=== PATIENT | female | born 1990 | race Caucasian/White ===

== ENCOUNTER 2018-09-14 20:16 | Emergency (ER) | payer OTHER, SELFPAY ==
[2018-09-14 20:23] VITALS: BP 107/51; PULSE 85; RESP 18; TEMP 36.9; O2SAT 98; BMI 29.9
--- NOTE | 2018-09-14 20:56 | ED_ITS ---
HPI - GI Bleed <SWAPNIL Reyna - Last Filed: 09/14/18 22:09> General Chief complaint: GI Bleed Stated complaint: RECTAL BLEEDING, FEVER, CRAMPING Time Seen by Provider: 09/14/18 20:27 Source: patient Mode of arrival: ambulatory Limitations: no limitations History of Present Illness HPI Narrative: Patient is a 27-year-old female with history of GI problems with an endoscope and colonoscopy pending in September. She presents with a chief complaint of bright red blood per rectum without bowel movement at 6:30 p.m.. She endorses nausea, abdominal pain, but no vomiting. She states she only has a bowel movement when she takes Linzess. She has a history of chronic constipation. She states her stools were bright red in jelly-like. She denies any chest pain, complains of low-grade temps, denies shortness of breath. The patient adamantly denies that the blood could be vaginal, though she notes she has had irregular periods since giving 10 months ago. Related Data Home Medications Medication Instructions Recorded Confirmed linaclotide [Linzess] 145 mg PO QDAY #0 07/22/17 09/14/18 1 tab PO QDAY 12/23/17 12/23/17 Allergies Allergy/AdvReac Type Severity Reaction Status Date / Time No Known Allergies Allergy Uncoded 09/14/18 20:28 Review of Systems <SWAPNIL Reyna - Last Filed: 09/14/18 22:09> Review of Systems GENERAL: See HPI HEENT: Denies sinus pain, ear pain, sore throat, difficulty swallowing, dizziness. RESPIRATORY: Denies dyspnea, cough, wheezing, hemoptysis, sputum. CARDIOVASCULAR: Denies chest pain, palpitations, orthopnea, edema, GASTROINTESTINAL: see HPI : Denies dysuria, frequency, incontinence, hematuria, urinary retention. MUSCULOSKELETAL: denies weakness, joint pain, or bony pain SKIN: Denies rash, skin lesions, or other NEUROLOGIC: Denies weakness, headache, numbness, change in speech, confusion, seizures, incoordination. PSYCHIATRIC: No concerning psychosocial issues. 12 point review of systems is negative except for those stated above Exam <SWAPNIL Reyna - Last Filed: 09/14/18 22:09> Narrative Exam Narrative: GENERAL: This is a well-nourished, well-developed patient, in no acute distress HEAD: Atraumatic. Normocephalic. No temporal or scalp tenderness. EYES: Pupils equal round and reactive. Extraocular motions intact. No scleral icterus. No injection or drainage. ENT: Nose without bleeding, purulent drainage or septal hematoma. Throat without erythema, tonsillar hypertrophy or exudate. Uvula midline. Airway patent. NECK: Trachea midline. No JVD or lymphadenopathy. Supple, nontender, no meningeal signs. CARDIOVASCULAR: Regular rate and rhythm without murmurs, gallops, or rubs. RESPIRATORY: Clear to auscultation. Breath sounds equal bilaterally. No wheezes , rales, or rhonchi. GASTROINTESTINAL: Abdomen soft, , nondistended. No hepato-splenomegaly, or palpable masses. No guarding, Soft nonrigid abdomen. diffusely tender bilateral lower quadrants. No pain at McBurney's point. Active bowel sounds. Rectal exam performed with Julia MONTIEL at bedside. No external hemorrhoids visible, no internal hemorrhoids palpable, no fissure noted. EXTREMITIES: No clubbing, cyanosis, or edema. No joint tenderness, effusion, or edema noted. BACK: Nontender without deformity or crepitance. No flank tenderness. NEURO: AOx3. SKIN: No rash or erythema. Initial Vital Signs Initial Vital Signs: Vital Signs Temperature 98.4 F 09/14/18 20:23 Pulse Rate 85 09/14/18 20:23 Respiratory Rate 18 09/14/18 20:23 Blood Pressure 107/51 L 09/14/18 20:23 Pulse Oximetry 98 09/14/18 20:23 <Alma Cleaning DO - Last Filed: 09/14/18 23:10> Initial Vital Signs Initial Vital Signs: Vital Signs Temperature 98.4 F 09/14/18 20:23 Pulse Rate 85 09/14/18 20:23 Respiratory Rate 18 09/14/18 20:23 Blood Pressure 107/51 L 09/14/18 20:23 Pulse Oximetry 98 09/14/18 20:23 Procedures <LUIZ Reyna-BC - Last Filed: 09/14/18 22:09> Stool Hemoccult Procedural Steps Taken: stool placed in appropriate test area, developer placed on stool and control areas and controls appropriately positive and negative Hemoccult result: negative Course <Julia Galloway, MILK DRIVER-BC - Last Filed: 09/14/18 22:09> Course Narrative: I checked on the patient several times throughout her stay in the emergency department. Orders Ordered: ED Orders 09/14/18 21:32 Complete Blood Count AUTO DIFF Stat Comprehensive Metabolic Panel Stat Partial Thromboplastin Time Stat Prothrombin Time INR Stat Type and Screen Stat Discontinued Medications Sodium Chloride (Normal Saline 0.9%) 1,000 mls @ 1,000 mls/hr IV BOLUS ONE Stop: 09/14/18 21:52 Last Infusion: 09/14/18 22:40 Dose: 0 mls/hr Admin: 09/14/18 21:31 Dose: 1,000 mls/hr Ondansetron HCl (Zofran) 4 mg IV NOW ONE Stop: 09/14/18 20:54 Last Admin: 09/14/18 21:32 Dose: 4 mg Ondansetron HCl (Zofran Odt Prepack) 1 bottle MISC SEEINSTR ONE Stop: 09/14/18 22:04 Last Admin: 09/14/18 22:39 Dose: 1 bottle Vital Signs - 8 hr 09/14/18 20:23 09/14/18 22:57 Temperature 98.4 F Pulse Rate 85 71 Respiratory Rate 18 14 Blood Pressure 107/51 L Blood Pressure [Left Wrist] 134/85 Pulse Oximetry 98 97 <Alma Cleaning DO - Last Filed: 09/14/18 23:10> Orders Ordered: ED Orders 09/14/18 21:32 Complete Blood Count AUTO DIFF Stat Comprehensive Metabolic Panel Stat Partial Thromboplastin Time Stat Prothrombin Time INR Stat Type and Screen Stat Discontinued Medications Sodium Chloride (Normal Saline 0.9%) 1,000 mls @ 1,000 mls/hr IV BOLUS ONE Stop: 09/14/18 21:52 Last Infusion: 09/14/18 22:40 Dose: 0 mls/hr Admin: 09/14/18 21:31 Dose: 1,000 mls/hr Ondansetron HCl (Zofran) 4 mg IV NOW ONE Stop: 09/14/18 20:54 Last Admin: 09/14/18 21:32 Dose: 4 mg Ondansetron HCl (Zofran Odt Prepack) 1 bottle MISC SEEINSTR ONE Stop: 09/14/18 22:04 Last Admin: 09/14/18 22:39 Dose: 1 bottle Vital Signs - 8 hr 09/14/18 20:23 09/14/18 22:57 Temperature 98.4 F Pulse Rate 85 71 Respiratory Rate 18 14 Blood Pressure 107/51 L Blood Pressure [Left Wrist] 134/85 Pulse Oximetry 98 97 MDM - GI Bleed <LUIZ Reyna-BC - Last Filed: 09/14/18 22:09> Lab Data Result diagrams: 09/14/18 21:32 09/14/18 21:32 Lab Results 09/14/18 09/14/18 09/14/18 Range/Units 21:32 21:32 21:32 WBC 8.2 (4.5-11.0) X10^3/uL RBC 4.67 (4.0-5.2) X10^6/uL Hgb 12.8 (12.0-16.0) g/dL Hct 38.6 (36-46) % MCV 82.5 (80-100) fL MCH 27.3 (26-34) PG MCHC 33.1 (30-36) % RDW 13.6 (11.6-14.8) % Plt Count 205 (150-400) X10^3/uL Neut % (Auto) 63.3 (50-75) % Lymph % (Auto) 27.3 (25-40) % [place] % (Auto) 7.2 (3-14) % Eos % (Auto) 1.5 L (2-4) % Baso % (Auto) 0.7 (0-2) % Neut # (Auto) 5200 (8971-1757) /uL Lymph # (Auto) 2200 (8282-1668) /uL [place] # (Auto) 600 (0-900) /uL Eos # (Auto) 100 (0-450) /uL Baso # (Auto) 100 (0-100) /uL PT 12.5 (10.1-12.7) SECONDS INR 1.1 (0.9-1.3) APTT 31 (26.4-36.2) SECONDS Sodium 140 (137-145) mmol/L Potassium 4.0 (3.4-5.1) mmol/L Chloride 101 (98-107) mmol/L Carbon Dioxide 27 (22-32) mmol/L BUN 16 (7-17) mg/dL Creatinine 0.70 (0.52-1.04) mg/dL Estimated GFR > 60.0 (>60) mL/min BUN/Creatinine Ratio 22.9 H (6-22) Glucose 83 (70-100) mg/dL Calcium 10.4 H (8.4-10.2) mg/dL Total Bilirubin 0.4 (0.2-1.3) mg/dL AST 28 (14-36) IU/L ALT 22 (9-52) IU/L Alkaline Phosphatase 73 (38-126) U/L Total Protein 8.7 H (6.3-8.2) g/dL Albumin 5.1 H (3.5-5.0) g/dL Globulin 3.6 (1.7-4.1) g/dL Albumin/Globulin Ratio 1.4 (1.0-2.8) Blood Type Antibody Screen 09/14/18 Range/Units 21:32 WBC (4.5-11.0) X10^3/uL RBC (4.0-5.2) X10^6/uL Hgb (12.0-16.0) g/dL Hct (36-46) % MCV (80-100) fL MCH (26-34) PG MCHC (30-36) % RDW (11.6-14.8) % Plt Count (150-400) X10^3/uL Neut % (Auto) (50-75) % Lymph % (Auto) (25-40) % [place] % (Auto) (3-14) % Eos % (Auto) (2-4) % Baso % (Auto) (0-2) % Neut # (Auto) (8004-7301) /uL Lymph # (Auto) (1903-5125) /uL [place] # (Auto) (0-900) /uL Eos # (Auto) (0-450) /uL Baso # (Auto) (0-100) /uL PT (10.1-12.7) SECONDS INR (0.9-1.3) APTT (26.4-36.2) SECONDS Sodium (137-145) mmol/L Potassium (3.4-5.1) mmol/L Chloride (98-107) mmol/L Carbon Dioxide (22-32) mmol/L BUN (7-17) mg/dL Creatinine (0.52-1.04) mg/dL Estimated GFR (>60) mL/min BUN/Creatinine Ratio (6-22) Glucose (70-100) mg/dL Calcium (8.4-10.2) mg/dL Total Bilirubin (0.2-1.3) mg/dL AST (14-36) IU/L ALT (9-52) IU/L Alkaline Phosphatase (38-126) U/L Total Protein (6.3-8.2) g/dL Albumin (3.5-5.0) g/dL Globulin (1.7-4.1) g/dL Albumin/Globulin Ratio (1.0-2.8) Blood Type A Positive Antibody Screen Negative MDM Narrative Medical decision making narrative: Patient is a 27-year-old female who presents with a chief complaint of fever and bloody stool. She is afebrile the emergency department and hemodynamically stable. She is not tachycardic or hypotensive. Her lab work came back grossly normal. Her stool on rectal exam was heme negative. I discussed at length follow up her primary care provider as well as follow up with Gastroenterology as scheduled. She does not have an acute abdomen on exam. I discussed return precautions of severe pain, inability keep down fluids, acute concerns. <Alma Cleaning, DO - Last Filed: 09/14/18 23:10> Lab Data Lab Results 09/14/18 09/14/18 09/14/18 Range/Units 21:32 21:32 21:32 WBC 8.2 (4.5-11.0) X10^3/uL RBC 4.67 (4.0-5.2) X10^6/uL Hgb 12.8 (12.0-16.0) g/dL Hct 38.6 (36-46) % MCV 82.5 (80-100) fL MCH 27.3 (26-34) PG MCHC 33.1 (30-36) % RDW 13.6 (11.6-14.8) % Plt Count 205 (150-400) X10^3/uL Neut % (Auto) 63.3 (50-75) % Lymph % (Auto) 27.3 (25-40) % [place] % (Auto) 7.2 (3-14) % Eos % (Auto) 1.5 L (2-4) % Baso % (Auto) 0.7 (0-2) % Neut # (Auto) 5200 (8797-9466) /uL Lymph # (Auto) 2200 (7753-9903) /uL [place] # (Auto) 600 (0-900) /uL Eos # (Auto) 100 (0-450) /uL Baso # (Auto) 100 (0-100) /uL PT 12.5 (10.1-12.7) SECONDS INR 1.1 (0.9-1.3) APTT 31 (26.4-36.2) SECONDS Sodium 140 (137-145) mmol/L Potassium 4.0 (3.4-5.1) mmol/L Chloride 101 (98-107) mmol/L Carbon Dioxide 27 (22-32) mmol/L BUN 16 (7-17) mg/dL Creatinine 0.70 (0.52-1.04) mg/dL Estimated GFR > 60.0 (>60) mL/min BUN/Creatinine Ratio 22.9 H (6-22) Glucose 83 (70-100) mg/dL Calcium 10.4 H (8.4-10.2) mg/dL Total Bilirubin 0.4 (0.2-1.3) mg/dL AST 28 (14-36) IU/L ALT 22 (9-52) IU/L Alkaline Phosphatase 73 (38-126) U/L Total Protein 8.7 H (6.3-8.2) g/dL Albumin 5.1 H (3.5-5.0) g/dL Globulin 3.6 (1.7-4.1) g/dL Albumin/Globulin Ratio 1.4 (1.0-2.8) Blood Type Antibody Screen 09/14/18 Range/Units 21:32 WBC (4.5-11.0) X10^3/uL RBC (4.0-5.2) X10^6/uL Hgb (12.0-16.0) g/dL Hct (36-46) % MCV (80-100) fL MCH (26-34) PG MCHC (30-36) % RDW (11.6-14.8) % Plt Count (150-400) X10^3/uL Neut % (Auto) (50-75) % Lymph % (Auto) (25-40) % [place] % (Auto) (3-14) % Eos % (Auto) (2-4) % Baso % (Auto) (0-2) % Neut # (Auto) (4501-7930) /uL Lymph # (Auto) (5561-1402) /uL [place] # (Auto) (0-900) /uL Eos # (Auto) (0-450) /uL Baso # (Auto) (0-100) /uL PT (10.1-12.7) SECONDS INR (0.9-1.3) APTT (26.4-36.2) SECONDS Sodium (137-145) mmol/L Potassium (3.4-5.1) mmol/L Chloride (98-107) mmol/L Carbon Dioxide (22-32) mmol/L BUN (7-17) mg/dL Creatinine (0.52-1.04) mg/dL Estimated GFR (>60) mL/min BUN/Creatinine Ratio (6-22) Glucose (70-100) mg/dL Calcium (8.4-10.2) mg/dL Total Bilirubin (0.2-1.3) mg/dL AST (14-36) IU/L ALT (9-52) IU/L Alkaline Phosphatase (38-126) U/L Total Protein (6.3-8.2) g/dL Albumin (3.5-5.0) g/dL Globulin (1.7-4.1) g/dL Albumin/Globulin Ratio (1.0-2.8) Blood Type A Positive Antibody Screen Negative Discharge Plan Departure Patient Disposition: Home Clinical Impression: Abdominal pain, History of rectal bleeding Discharge Date/Time: 09/14/18 23:02 Interventions: ED Discharge Assessment Last Done: 09/14/18 23:01 Instructions: DI for Abdominal Pain-Adult, DI for Rectal Bleeding Activity Restrictions/Additional Instructions: As discussed please follow-up with your primary care provider as well as your mill recorder. You may need to have her colonoscopy sooner than previously arranged. Please push fluids and rest. We are giving you some nausea medication to take home, but be aware this can be constipating. Come back to the emergency department for any acute concerns including severe pain, inability keep down fluids, severe rectal bleeding, etc. Prescriptions: No Action linaclotide [Linzess] 72 mcg Capsule 145 mg PO QDAY Qty: 0 RF: 0 tablet 1 tab PO QDAY RF: 0 Referrals: [facility] [Provider Group] <Alma Cleaning, DO - Last Filed: 09/14/18 23:10> Cosign ED Attending Calixtoature Attestation: I was immediately available in the department for consultation. Documentation has been reviewed. I agree with assessment and plan.
[2018-09-14] MEDS: SODIUM CHLORIDE 0.9% 1,000 ML 1000 ML IV (21:31)
[2018-09-14] MEDS: ONDANSETRON 4 MG/2 ML INJ IV (21:32)
[2018-09-14 21:37] LABS: Add Manual Diff / Slide Review NO; Basophils Absolute Auto 100 /uL (0-100); Basophils Percent Auto 0.7 % (0-2); Eosinophils Absolute Auto 100 /uL (0-450); Eosinophils Percent Auto 1.5 % (2-4); Hematocrit 38.6 % (36-46); Hemoglobin 12.8 g/dL (12.0-16.0); Lymphocytes Absolute Auto 2200 /uL (1100-4500); Lymphocytes Percent Auto 27.3 % (25-40); Mean Corpuscular HGB Conc 33.1 % (30-36); Mean Corpuscular Hemoglobin 27.3 PG (26-34); Mean Corpuscular Volume 82.5 fL (80-100); Monocytes Absolute Auto 600 /uL (0-900); Monocytes Percent Auto 7.2 % (3-14); Neutrophils Absolute Auto 5200 /uL (1500-7000); Neutrophils Percent Auto 63.3 % (50-75); Platelet Count 205 X10^3/uL (150-400); Red Blood Cell Count 4.67 X10^6/uL (4.0-5.2); Red Cell Distribution Width 13.6 % (11.6-14.8); White Blood Cell Count 8.2 X10^3/uL (4.5-11.0)
[2018-09-14 21:41] LABS: INR 1.1 (0.9-1.3); Prothrombin Time 12.5 SECONDS (10.1-12.7)
[2018-09-14 21:44] LABS: PTT Partial Thromboplastin Tim 31 SECONDS (26.4-36.2)
[2018-09-14 21:46] LABS: Alanine Aminotransferase 22 IU/L (9-52); Albumin 5.1 g/dL (3.5-5.0); Albumin Globulin Ratio 1.4 (1.0-2.8); Alkaline Phosphatase 73 U/L (38-126); Aspartate Aminotransferase 28 IU/L (14-36); BUN Creatinine Ratio 22.9 (6-22); Bilirubin Total 0.4 mg/dL (0.2-1.3); Blood Urea Nitrogen 16 mg/dL (7-17); Calcium 10.4 mg/dL (8.4-10.2); Carbon Dioxide 27 mmol/L (22-32); Chloride 101 mmol/L (98-107); Estimated Glomerular Filt Rate > 60.0 mL/min (>60); Globulin 3.6 g/dL (1.7-4.1); Glucose 83 mg/dL (70-100); HEMOLYSIS < 15 (0-50); Sodium 140 mmol/L (137-145); Total Protein 8.7 g/dL (6.3-8.2)
[2018-09-14] MEDS: ONDANSETRON 4 MG ODT PREPACK 1 BOTTLE MISC (22:39)
[2018-09-14 22:57] VITALS: BP 134/85; PULSE 71; RESP 14; O2SAT 97
== END 2018-09-14 23:02 | disposition home or self-care (01) ==
PROVIDERS: Emergency Provider Nurse Practitioner Family
DX: R10.9 Unspecified abdominal pain (principal); Z87.19 Personal history of other diseases of the digestive system
CPT/HCPCS: 36591; 80053; 85025; 85610; 85730; 86850; 86900; 86901; 96361; 96374; 99283; 99284; J2405